=== PATIENT | female | born 1970 | race Caucasian/White ===

== ENCOUNTER 2024-10-28 21:04 | Emergency (ER) | payer MEDICAID ==
[~2024-10-28] VITALS: Ht 175.3 cm; Wt 103.2 kg
[2024-10-28] MEDS: ketorolac trometh 30MG/ML vial 30 MG/ML VIAL IM ONE (22:34)
[2024-10-28] MEDS ORDERED: HYDR-3965 PO (23:13)
[2024-10-28 23:35] VITALS: BP 135/87; PULSE 71; RESP 18; TEMP 98.2; O2SAT 97
[2024-10-28] MEDS ORDERED: GABA300C PO (23:35)
== END 2024-10-28 23:37 | disposition home or self-care (01) ==
LOC: ER 21:05
DX: M25.511 Pain in right shoulder (principal); W19.XXXA Unspecified fall, initial encounter; Y93.89 Activity, other specified; Y92.89 Other specified places as the place of occurrence of the external cause; Y99.8 Other external cause status
CPT/HCPCS: 73030; 96372; 99284; J1885